=== PATIENT | female | born 1965 | race Caucasian/White ===

== ENCOUNTER 2025-04-16 04:22 | Emergency (ER) | payer OTHER, SELFPAY ==
[2025-04-16 04:28] VITALS: BP 135/89
[2025-04-16 04:46] LABS: Glucose - Point of Care 202 mg/dl (70-99)
[2025-04-16 04:47] VITALS: BMI 33.2
--- NOTE | 2025-04-16 04:56 | ED.GENMED ---
History of Present Illness
General
Chief Complaint: Headache
Source: patient
Exam Limitations: none
Time Seen by Provider: 04/16/25 04:35
Nursing documentation reviewed up to this point in time: agreed with
History of Present Illness
History of Present Illness:
Note:
CHIEF COMPLAINT(S)
Headache, nausea, and feelings similar to past diabetic ketoacidosis (DKA).
HISTORY OF PRESENT ILLNESS
The patient is a 59-year-old female who presented with a headache that started yesterday. She also received COVID and flu vaccine on the same day in the afternoon. She has no history of frequent headaches or migraines and reported taking ibuprofen,
although she is unsure of the exact time. She does not feel that this medication helped. There was no vomiting at the time of headache onset. The headache was described as diffuse and accompanied by some neck pain. She reported not feeling well
since yesterday and stated, 'I feel all horrible now.' The patient also mentioned symptoms reminiscent of a previous episode of diabetic ketoacidosis (DKA) she experienced three years ago, during which she was hospitalized and felt 'really out of
it.' At that time, she did have diabetes and was on medication. 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
The patients headache is accompanied by nausea, denies abdominal pain; she described feeling 'queasy.' She has not eaten since Tuesday. She reports that she tries avoiding her long acting insulin lantus but uses novolog and tries to manage her sugars
with fasting and tries to avoid insulin use. Her blood glucose was 150 mg/dL this morning. She reported feeling warmer than usual recently.
The headache does not seem to be photophobic, there are no reported visual changes, and there are no signs of numbness or tingling or weakness on one side of the body vs the other. She no longer takes an SGLT2. Of note, she did receive COVID and flu
vaccine the day before her symptoms started.
PAST MEDICAL AND SURGICAL HISTORY
History of diabetic ketoacidosis three years ago
CHRONIC MEDICAL CONDITIONS SIGNIFICANTLY AFFECTING CARE
The patient has diabetes and pancreatic atrophy, which have significantly impacted her health and treatment strategies.
SOCIAL DETERMINANTS AFFECTING HEALTH
The patient is financially capable of taking care of her health needs and has a supportive primary care physician who encourages fasting for blood sugar management.
MEDICATIONS
Insulin for diabetes management
Munjaro
REVIEW OF SYSTEMS
- Neurological: Headache, reported as diffuse, with no history of similar headaches.
- Gastrointestinal: Nausea, no reported vomiting, has not eaten since Tuesday.
- General: Feeling warmer than usual, no fever reported.
- No recent illnesses or contact with sick individuals.
PHYSICAL EXAM
General: Alert, no acute distress.
Skin: Warm, dry.
Head: Normocephalic, atraumatic.
Neck: Supple, trachea midline.
Eye Ears, Nose, Mouth and Throat: Oral mucosa moist.
Cardiovascular: Regular rate and rhythm. Normal peripheral perfusion, No edema.
Respiratory: Respirations are non-labored. No wheezes, rales, or rhonchi.
Gastrointestinal: Abdomen nondistended and non-tender to palpation, no epigastric tenderness to palpation
Back: Normal range of motion, Normal alignment.
Musculoskeletal: Normal range of motion, normal strength.
Neurological: GCS 15, Alert and oriented to person, place, time, and situation, CN II-XII intact. Normal finger to nose, heel to grimes. No focal neurological deficit observed.
Psychiatric: Cooperative, appropriate mood and affect.
PROBLEM LIST
Acute Problems:
- Headache
- Nausea
Chronic Problems:
- Diabetes
- Pancreatic atrophy
- Previous diabetic ketoacidosis
PLAN
- Begin IV fluids for dehydration and potential headache relief.
- Blood work to assess for diabetic ketoacidosis and general metabolic panel.
- Administer medications typically used to manage headache and nausea as discussed, such as ondansetron (unclear the exact medications planned from the discussion).
- Follow up on blood glucose levels and adjust insulin therapy as needed.
DIFFERENTIAL DIAGNOSIS
The Differential Diagnosis includes, in no particular order and is not limited to:
1. Diabetic Ketoacidosis
2. Headache secondary to vaccination
3. Migraine
4. Tension-type headache
5. Hypoglycemia
6. Dehydration
7. generalized Anxiety
8. Hypertensive headache
9. Intra-abdominal process with referred headache
10. Hyperglycemia-related symptoms
MDM/DISPOSITION
59-year-old female presents emergency department today with concerns of severe headache with associated nausea. She is concerned because this is how she felt when she previously had DKA. Of note, he states symptoms started after she received COVID
and flu vaccine. On physical exam, she is well-appearing no acute distress. She has a nonfocal neurologic exam. She is afebrile. Labs reviewed, mild leukopenia noted likely secondary to vaccine/viral syndrome. No evidence of DKA on blood work,
no evidence of acidosis. She received migraine cocktail with much improvement of her symptoms. Head CT no acute findings. Suspect migraine/vaccine side effect. Patient states that she is feeling much better. Patient stable for discharge.
Discussed follow-up with ndt inspector and PCP.
Past History
Past History
ED Past Medical History: IDDM and Other (Pancreatitis, DKA)
ED Past Surgical History: None
Social History
Tobacco: Former smoker
Alcohol: None
Personal:
Living: with family
Review of Systems
Review of Systems
All Other Systems: ROS reviewed and negative except as documented in HPI and ROS
Phy Exam
Physical Exam
Physical Exam:
see hpi
Course
Orders/Labs/Results
Orders:
Orders
04/16/25 04:50
CT Head W/o Iv Contrast Urgent
Comment:
Reason For Exam: headache, weakness
0.9% Sodium Chloride 500 ml [Nss] 500 ml IV BOLUS
04/16/25 04:52
IV Insert/Care/Rem.- Treatment PRN
04/16/25 04:54
B-Hydroxybutyrate Urgent
Complete Blood Count/With Diff Urgent
Comprehensive Metabolic Panel Urgent
Lipase Urgent
Magnesium Urgent
04/16/25 04:58
Venous Blood Gas Urgent
%Oxygen/Room Air: 100
04/16/25 04:59
Diphenhydramine [Benadryl] 12.5 mg IV NOW STA
Metoclopramide [Reglan] 10 mg IV NOW STA
04/16/25 05:34
Ketorolac [Toradol] 15 mg IV NOW STA
Abnormal Lab Results
04/16/25 04/16/25 04/16/25
04:45 04:54 04:58
WBC 3.7 L 10^3/uL
(4.8-10.8)
MCH 31.2 H pg
(27.0-31.0)
Absolute Lymphs (auto) 0.6 L 10^3/uL
(1.2-3.4)
Lymphocytes % 17.2 L %
(20.5-51.1)
Monocytes % 10.9 H %
(1.7-9.3)
VBG pH 7.44 H
(7.32-7.43)
VBG pCO2 34 L mmHg
(35-48)
VBG pO2 130 H mmHg
(30-50)
BUN 6 L mg/dl
(7-17)
Creatinine 0.5 L mg/dL
(0.6-1.0)
Glucose 185 H mg/dl
(70-99)
B-Hydroxybutyrate 0.83 H mmol/L
(0.02-0.27)
POC Glucose 202 H mg/dl
(70-99)
04/16/25 04:54
04/16/25 04:54
Vital Signs
Initial and Last Documented VS:
Initial Vital Signs
Temp Pulse Resp BP Pulse Ox
98.2 F 113 24 135/89 99
04/16/25 04:28 04/16/25 04:28 04/16/25 04:28 04/16/25 04:28 04/16/25 04:28
Last Documented Vital Signs
Temp Pulse Resp BP Pulse Ox
98.2 F 78 20 96/57 97
04/16/25 04:28 04/16/25 06:09 04/16/25 05:03 04/16/25 06:02 04/16/25 06:30
*Pulse Oximetry
SaO2: 99
Oxygen Mode of Delivery: Room air
Patient hypoxic: no
*Critical Care Note
Total Time (30-74mins, 75-104mins- exclusive of procedures): Not Applicable
ED Attending Note
-
Portions of this chart may have been created with voice recognition software.� Occasional wrong word or��sound alike� substitutions may have occurred due to the inherent limitations of voice recognition software.
Discharge Plan
Departure
Patient Disposition: Home (Routine Discharge)
Date of Disposition: 04/16/25
Time of Disposition: 06:39
Patient with high blood pressure during this ER visit?: Yes
Condition: Good
Discharge Problem:
Migraine headache
Instructions: Headache, Adult (DC), BLOOD PRESSURE
Prescriptions:
No Action
repaglinide 2 mg Tablet
4 mg PO DAILY@1700
ibuprofen 200 mg Tablet
600 mg PO Q6H PRN (Reason: mild pain)
acetaminophen 325 mg Tablet
650 mg PO Q4HPRN PRN (Reason: pain-mild) Qty: 30 0RF
(DME) pen needle, diabetic [1st Tier Unifine Pentips] 29 gauge x 1/2' needle
See Rx Instructions .Route Qty: 100 0RF
Rx Instructions:
As directed
Levemir U-100 Insulin 100 unit/mL solution
17 unit SC HS Qty: 2 1RF
Referrals:
Miko Colon MD [Family Provider, Family Practice]
Activity Restrictions/Additional Instructions:
Please stay well hydrated.
Please follow up with your PCP and your ndt inspector.
PLEASE RETURN TO THE ER SHOULD YOU DEVELOP VISUAL LOSS, WEAKNESS ON ONE SIDE OF THE BODY VS THE OTHER, INTRACTABLE NAUSEA OR VOMITING, FEVERS, OR ANY OTHER SIGNS OR SYMPTOMS WORRISOME TO YOU.
Interventions
Interventions:
*Risk Screen - Suicide Last Done: 04/16/25 04:28
*General Assessment Last Done: 04/16/25 04:28
*Neglect/Abuse Screening Last Done: 04/16/25 04:28
*ED- Fall Risk Assessment Last Done: 04/16/25 04:28
*ED COVID-19 Vaccine History Last Done: 04/16/25 04:28
*ED Influenza Vaccine History Last Done: 04/16/25 04:28
OP-Fpjxef-Tbbpeeaqrz Assessment Last Done: 04/16/25 04:45
ED- Neurological Assessment Last Done: 04/16/25 04:45
Discharge Date and Time
Print Language: ROMANIAN
[2025-04-16] MEDS: BENADRYL 12.5 MG IV (05:02)
[2025-04-16] MEDS: NSS 500 IV (05:02)
[2025-04-16 05:05] LABS: Venous Blood Gas B.E. -0.5 mmol/L (-4 to +4); Venous Blood Gas O2 Sat % 99.7 %
[2025-04-16] MEDS: REGLAN 10 MG IV (05:05)
[2025-04-16 05:06] LABS: Hematocrit 37.9 % (37.0-47.0); Hemoglobin 13.2 g/dL (12.0-16.0); Mean Corp Hgb Conc. 34.8 g/dL (33.0-37.0); Mean Corpuscular Volume 89.6 fL (81.0-99.0); Nucleated Red Blood Cells % 0 %; Platelet Count 185 10^3/uL (130-400); Red Cell Dist. Width 11.8 % (11.5-14.5)
[2025-04-16 05:32] LABS: ALT (SGPT) 27 U/L (0-35); AST (SGOT) 20 U/L (14-36); Albumin 4.1 g/dl (3.5-5.0); Alkaline Phosphatase 92 U/L (38-126); Blood Urea Nitrogen 6 mg/dl (7-17); Calcium 9.0 mg/dl (8.4-10.2); Carbon Dioxide 22 mmol/L (22-30); Chloride 103 mmol/L (98-107); Estimated Creatinine Clearance 111 ml/min; Glucose 185 mg/dl (70-99); Lipase 39 U/L (23-300); Magnesium 2.0 mg/dl (1.6-2.3); Potassium 4.0 mmol/L (3.5-5.1); Sodium 135 mmol/L (135-145); Total Protein 7.3 g/dl (6.3-8.2); eGFR > 60.00
[2025-04-16] MEDS: TORADOL 15 MG IV (05:37)
[2025-04-16 06:02] VITALS: BP 96/57
[2025-04-16 06:43] VITALS: BP 103/69
== END 2025-04-16 06:46 | disposition home or self-care (01) ==
LOC: EMR 04:22
PROVIDERS: Physician Assistant; EMERGENCY PHYSICIAN Emergency Medicine; FAMILY PHYSICIAN Family Medicine
DX: G43.909 Migraine, unspecified, not intractable, without status migrainosus (principal); E11.9 Type 2 diabetes mellitus without complications; Z79.4 Long term (current) use of insulin; E86.0 Dehydration; Z86.39 Personal history of other endocrine, nutritional and metabolic disease
CPT/HCPCS: 96374; 96375; 96361; 99284; 70450; 80053; 82010; 82805; 82962; 83690; 83735; 85025

== ENCOUNTER 2025-07-08 16:21 | Emergency (ER) | payer OTHER, SELFPAY ==
[2025-07-08 16:24] VITALS: BP 145/81
--- NOTE | 2025-07-08 18:16 | ED.GENMED ---
History of Present Illness
General
Chief Complaint: Fall
Source: patient
Exam Limitations: none
Time Seen by Provider: 07/08/25 18:08
History of Present Illness
History of Present Illness:
59yoF with history of insulin-dependent diabetes presenting with her for evaluation after a fall about 2.5 hours ago. Patient was walking outside and slipped on the ice. She fell backwards and struck the back of her head on the ground. No
loss of consciousness. She was able to get up after the fall but developed a headache almost immediately. Her headache has since improved since being in the waiting room and headache is currently rated as a 1/10 in severity. She had neck pain
earlier but denies this currently. No visual changes, dizziness, vomiting. She does not take any blood thinners.
Past History
Past History
ED Past Medical History: IDDM and Other (Pancreatitis, DKA)
ED Past Surgical History: None
Social History
Tobacco: Former smoker
Alcohol: None
Personal:
Living: with family
Phy Exam
General Physical Exam
General Presentation: well appearing and no apparent distress
General age: appears stated age
General Skin: warm and dry
General Habitus: normal
General Mental: alert
ENT Exam
ENT Exam: TM's normal (No hemotympanum) and other (Small amount of swelling in L parietal region. No lacerations. No cervical spine tenderness with full ROM.)
Eye Exam
Eye Exam: PERRL and conjunctiva normal
Pulmonary Exam
Pulmonary Exam: no respiratory distress
Neurological Exam
Neurological Exam: alert
Sheba Coma Scale
Eye Opening: Spontaneous
Verbal Response: Oriented
Motor Response: Obeys Commands
GCS Total Score: 15
Skin Exam
Skin Exam: normal color and warm/dry
Psychiatric Exam
Psychiatric Exam: normal mood/affect
Course
Orders/Labs/Results
Orders:
Orders
07/08/25 16:27
CT Head W/o Iv Contrast Urgent
Comment:
Reason For Exam: injury and pain
07/08/25 18:15
CT Cervical Spine W/o Iv Contr Urgent
Comment:
Reason For Exam: fall, head injury
Vital Signs
Initial and Last Documented VS:
Initial Vital Signs
Temp Pulse Resp BP Pulse Ox
98.5 F 94 20 145/81 100
07/08/25 16:24 07/08/25 16:24 07/08/25 16:24 07/08/25 16:24 07/08/25 16:24
Last Documented Vital Signs
Temp Pulse Resp BP Pulse Ox
98.5 F 94 20 145/81 100
07/08/25 16:24 07/08/25 16:24 07/08/25 16:24 07/08/25 16:24 07/08/25 18:17
MDM/Problems Addressed
Differential Diagnosis Includes:
59yoF here with a head injury after a mechanical fall. Minor headache currently. Not on blood thinners. She is awake, alert, with a GCS of 15. There is a minor area of swelling to the L parietal region. No cervical spine tenderness noted.
Differential diagnosis includes: Closed head injury, concussion, intracranial hemorrhage, skull fracture
Imaging ordered in triage. CT head and cervical spine are negative for traumatic injuries. Patient provided with reassurance and supportive care discussed. Advised follow-up with PCP with any residual symptoms. Patient in agreement with plan and
she was discharged in stable condition.
*Pulse Oximetry
SaO2: 100
Oxygen Mode of Delivery: Room air
Patient hypoxic: no
*Critical Care Note
Total Time (30-74mins, 75-104mins- exclusive of procedures): Not Applicable
ED Attending Note
-
Portions of this chart may have been created with voice recognition software.� Occasional wrong word or��sound alike� substitutions may have occurred due to the inherent limitations of voice recognition software.
Discharge Plan
Departure
Patient Disposition: Home (Routine Discharge)
Date of Disposition: 07/08/25
Time of Disposition: 19:06
Patient with high blood pressure during this ER visit?: Yes
Discharge Problem:
Closed head injury
Instructions: Head Injury in Adults (DC)
Prescriptions:
No Action
repaglinide 2 mg Tablet
4 mg PO DAILY@1700
ibuprofen 200 mg Tablet
600 mg PO Q6H PRN (Reason: mild pain)
acetaminophen 325 mg Tablet
650 mg PO Q4HPRN PRN (Reason: pain-mild) Qty: 30 0RF
(DME) pen needle, diabetic [1st Tier Unifine Pentips] 29 gauge x 1/2' needle
See Rx Instructions .Route Qty: 100 0RF
Rx Instructions:
As directed
Levemir U-100 Insulin 100 unit/mL solution
17 unit SC HS Qty: 2 1RF
Referrals:
Miko Colon MD [Family Provider, Family Practice]
Activity Restrictions/Additional Instructions:
Your CT scans were normal today. Apply ice to help with swelling. You may take Tylenol and ibuprofen as needed for headaches.
Please follow-up with your family doctor. Return to the ER with any new or worsening symptoms including confusion.
Interventions
Interventions:
*ED COVID-19 Vaccine History Last Done: 07/08/25 16:24
*ED Influenza Vaccine History Last Done: 07/08/25 16:24
*Risk Screen - Suicide (C-SSRS) Last Done: 07/08/25 16:24
Discharge Date and Time
Print Language: CUBAN
== END 2025-07-08 19:28 | disposition home or self-care (01) ==
LOC: EMR 16:21
PROVIDERS: EMERGENCY PHYSICIAN Emergency Medicine; FAMILY PHYSICIAN Family Medicine
DX: S09.90XA Unspecified injury of head, initial encounter (principal); R51.9 Headache, unspecified; W00.0XXA Fall on same level due to ice and snow, initial encounter; Y93.01 Activity, walking, marching and hiking; R03.0 Elevated blood-pressure reading, without diagnosis of hypertension; E11.9 Type 2 diabetes mellitus without complications; Z79.4 Long term (current) use of insulin; Z87.891 Personal history of nicotine dependence
CPT/HCPCS: 99284; 70450; 72125